=== PATIENT | female | born 1965 | race Caucasian/White ===

== ENCOUNTER 2025-08-07 21:04 | Emergency (ER) | payer MEDICARE ==
[~2025-08-07] VITALS: Ht 167.6 cm; Wt 66.6 kg
[2025-08-07 21:23] VITALS: BP 106/76; PULSE 76; RESP 18; O2SAT 96
--- NOTE | 2025-08-07 22:45 | Physician Documentation ---
History of Present Illness ~ Chief Complaint: Bite-insect Stated Complaint: SPIDER BITE Time Seen by MD: 22:09 HPI 60-year-old female presents to the ED with a complaint of an infection on her right forearm states she was digging around in her garage thinks she may have bitten by an insect. Since then she has felt generally ill had some nausea and feels increased pain and swelling on the posterior of her right forearm. Day of Onset: Aug 07, 2025 Tetanus within 5 years?: Yes Medication Reconciliation Allergies: Coded Allergies: lisinopril (Verified Allergy, Unknown, 08/07/25) morphine (Verified Allergy, Unknown, 08/07/25) Scheduled Sulfamethoxazole/Trimethoprim (Septra Ds Tab), 1 TAB PO Q12H Review of Systems All Other Systems at this time: Reviewed and Negative ROS As stated above in the HPI, otherwise all systems are reviewed and negative. Physical Exam Vital Signs: Temperature: 97.5, Heart Rate: 76, Respiratory Rate: 18, BP: 106/76, Pulse Oximetry: 96, Weight: 66.600 Physical Exam General: Alert, no apparent distress. Extremities: Normal range of motion, no deformity. Posterior right forearm there is a draining ulceration proximally 1.5 cm with surrounding erythema and swelling. Neurologic: Oriented x4. Psychiatric: Normal mood and affect. Skin: Normal color, warm and dry. No edema, no ecchymosis. Progress Results/Orders Results/Orders Completed Orders - SANTIAGO SUTTON KNUCKLER Sulfamethox/Trimetho. Ds Tab (Septra Ds (08/07/25 22:50) Vital Signs 08/07/25 21:23 Temp 97.5 Pulse 76 Resp 18 B/P (MAP) 106/76 Pulse Ox 96 Medical Decision Making Additional information obtaine: old records Findings This patient is nontoxic appearing however she does present with a developing infection on her right forearm. The area is draining and not fluctuant. Differential Dx:Considerations: Include: Abrasion, Allergic reaction, Anaphylaxis, Cellulitis, Contusion, Fracture, Hematoma, Insect envenomation, Laceration, Neurovascular injury, Punture wound, Retained foreign body, Urtic aria, Other Departure Disposition: 01 HOME / SELF CARE / HOMELESS Impression: Primary Impression: Cellulitis Additional Impression: Insect bites Condition: Stable Discharge Instructions: Insect Bite, Adult, [id number] Referrals: NO PRIMARY CARE PROVIDER (PCP) Prescriptions Sulfamethoxazole/Trimethoprim (Septra Ds Tab) 800 Mg/160 Mg Tablet 1 TAB PO Q12H for 10 Days, #20 TAB Prov: SANTIAGO SUTTON KNUCKLER 08/07/25 Education Educated: Patient Educated regarding: diagnosis Signature Scribe Signature: d Attestation: Scribed for Santiago Sutton Body Line Finisher by Santiago Spence NP . 08/07/25 23:00 SANTIAGO SUTTON NP Aug 07, 2025 22:45
[2025-08-07] MEDS ORDERED: SULF1TAB45 PO (22:46)
[2025-08-07 23:04] VITALS: TEMP 97.5
[2025-08-07] MEDS: sulfamethoxazole/trimethoprim DS (800/160mg) tablet PO ONE (23:10)
== END 2025-08-07 23:12 | disposition home or self-care (01) ==
LOC: ER 21:05
DX: L03.113 Cellulitis of right upper limb (principal); T63.301A Toxic effect of unspecified spider venom, accidental (unintentional), initial encounter; Z88.5 Allergy status to narcotic agent; Z88.8 Allergy status to other drugs, medicaments and biological substances; Z79.899 Other long term (current) drug therapy
CPT/HCPCS: 99283